=== PATIENT | female | born 1935 | race Hispanic/Latino ===

== ENCOUNTER 2021-02-24 22:51 | Emergency (ER) | payer MEDICARE ==
[2021-02-24 23:05] VITALS: BP 107/50
[2021-02-25] MEDS ORDERED: LIDOCAINE HCL 2% JELLY 5 ML ONE (01:07)
[2021-02-25] MEDS ORDERED: DIATR MEGLU/DIATRIZOATE SODIUM 30 ML BOTTLE ONE (02:48)
[2021-02-25 03:05] VITALS: BP 117/66
[2021-02-25 06:09] VITALS: BP 118/62
== END 2021-02-25 07:06 ==
LOC: EDH 22:51
DX: K94.23 Gastrostomy malfunction (principal); G30.9 Alzheimer's disease, unspecified; F02.80 Dementia in other diseases classified elsewhere, unspecified severity, without behavioral disturbance, psychotic disturbance, mood disturbance, and anxiety; K21.9 Gastro-esophageal reflux disease without esophagitis; I10 Essential (primary) hypertension; Z86.73 Personal history of transient ischemic attack (TIA), and cerebral infarction without residual deficits
CPT/HCPCS: 43762; 74018 ×2; 99284; Q9963

== ENCOUNTER 2021-08-02 14:21 | Emergency (ER) | payer MEDICARE ==
[~2021-08-02] VITALS: Ht 162.6 cm; Wt 74.8 kg
[2021-08-02] MEDS ORDERED: DIATR MEGLU/DIATRIZOATE SODIUM 30 ML BOTTLE ONE (14:50)
[2021-08-02 19:18] VITALS: BP 113/80
== END 2021-08-02 16:00 | disposition home or self-care (01) ==
LOC: EDH 14:21
DX: K94.23 Gastrostomy malfunction (principal); F03.90 Unspecified dementia, unspecified severity, without behavioral disturbance, psychotic disturbance, mood disturbance, and anxiety; I10 Essential (primary) hypertension; K21.9 Gastro-esophageal reflux disease without esophagitis; Z86.73 Personal history of transient ischemic attack (TIA), and cerebral infarction without residual deficits
CPT/HCPCS: 43762; 74018; 99284; Q9963